=== PATIENT | female | born 1950 | race Caucasian/White ===

== ENCOUNTER → 2021-07-23 | Outpatient (CLI) | payer MEDICARE, OTHER | LOC: ORTHO 11:08 | PROVIDERS: ATTEND Orthopaedic Surgery | DX: C67.9 Malignant neoplasm of bladder, unspecified (principal) | CPT/HCPCS: 20610; G0463 ==

== ENCOUNTER → 2021-10-17 | Outpatient (CLI) | payer MEDICARE, OTHER ==
--- NOTE | 2021-10-17 11:31 | Diagnostic Imaging Report ---
Indication: Osteoarthritis. Time of Exam: 9:09 AM Multiple views bilateral knees were obtained. Both knees demonstrate significant tricompartmental degenerative change with joint space narrowing and marginal spurring. No fractures are seen. There is no dislocation. No joint effusion is identified. IMPRESSION: Severe tricompartmental degenerative change bilateral knees. Dictated by: Dictated on workstation # [id number]
== END ==
LOC: ORTHO 08:54
PROVIDERS: ATTEND Orthopaedic Surgery
DX: M17.0 Bilateral primary osteoarthritis of knee (principal)
CPT/HCPCS: 20610

== ENCOUNTER → 2022-01-16 | Outpatient (CLI) | payer MEDICARE, OTHER | LOC: ORTHO 13:13 | PROVIDERS: ATTEND Orthopaedic Surgery | DX: M17.0 Bilateral primary osteoarthritis of knee (principal) ==

== ENCOUNTER → 2022-03-11 | Outpatient (CLI) | payer MEDICARE, OTHER ==
--- NOTE | 2022-03-11 18:15 | Diagnostic Imaging Report ---
EXAMINATION: Left knee, four views. HISTORY: Knee pain. COMPARISON: None available. FINDINGS: There is severe tricompartmental osteoarthritis. No fracture. No dislocation. There is lateral subluxation of the tibia relative to the femur. There is a large effusion. IMPRESSION: 1. Severe tricompartmental osteoarthritis with a large effusion. Dictated by: Dictated on workstation # [id number]
== END ==
LOC: ORTHO 15:00
PROVIDERS: ATTEND Orthopaedic Surgery
DX: M17.0 Bilateral primary osteoarthritis of knee (principal); I10 Essential (primary) hypertension; E78.00 Pure hypercholesterolemia, unspecified
CPT/HCPCS: 73564; G0463; 99213

== ENCOUNTER → 2022-05-13 | Outpatient (CLI) | payer MEDICARE, OTHER | LOC: ORTHO 17:03 | PROVIDERS: ATTEND Orthopaedic Surgery | DX: M17.0 Bilateral primary osteoarthritis of knee (principal); E78.00 Pure hypercholesterolemia, unspecified; I10 Essential (primary) hypertension; M41.80 Other forms of scoliosis, site unspecified ==

== ENCOUNTER → 2022-08-12 | Outpatient (CLI) | payer MEDICARE, OTHER | LOC: ORTHO 11:27 | PROVIDERS: ATTEND Orthopaedic Surgery | DX: M17.0 Bilateral primary osteoarthritis of knee (principal) ==

== ENCOUNTER → 2022-11-27 | Outpatient (CLI) | payer MEDICARE, OTHER | LOC: ORTHO 11:19 | PROVIDERS: ATTEND Orthopaedic Surgery | DX: M17.0 Bilateral primary osteoarthritis of knee (principal) ==

== ENCOUNTER → 2023-01-13 | Outpatient (CLI) | payer MEDICARE, OTHER | LOC: ORTHO 14:24 | PROVIDERS: ATTEND Orthopaedic Surgery | DX: M17.0 Bilateral primary osteoarthritis of knee (principal); E78.00 Pure hypercholesterolemia, unspecified; I10 Essential (primary) hypertension ==

== ENCOUNTER → 2023-03-12 | Outpatient (CLI) | payer MEDICARE, OTHER | LOC: ORTHO 09:03 | PROVIDERS: ATTEND Orthopaedic Surgery | DX: M17.0 Bilateral primary osteoarthritis of knee (principal); I10 Essential (primary) hypertension; E78.00 Pure hypercholesterolemia, unspecified | CPT/HCPCS: 20610; G0463; 99213 ==